=== PATIENT | female | born 1955 ===

== ENCOUNTER 2017-07-02 09:00 | Emergency (ER) | payer OTHER ==
[2017-07-02 09:10] VITALS: TEMP 98
[2017-07-02 09:22] VITALS: RESP 18; BMI 30.5
[2017-07-02] MEDS ORDERED: Sodium Chloride 0.9% 1,000 ML IV STA (09:34)
[2017-07-02] MEDS ORDERED: MethylPREDNISolone Depo 40 mg/ml Inj ONE (10:00)
[2017-07-02] MEDS ORDERED: Iohexol 300 10 ML ONE (10:00)
[2017-07-02] MEDS ORDERED: Bupivacaine HCl 0.25% PF (10 ml) Inj ONE (10:01)
[2017-07-02] MEDS ORDERED: Lidocaine 1% Inj (20ml) ONE (10:01)
--- NOTE | 2017-07-02 10:07 | ED PDOC ---
HPI: Abdomen Time Seen by Provider: 07/02/17 09:12 Chief Complaint (Nursing): Abdominal Pain Chief Complaint (Provider): Abdominal Pain History Per: Patient History/Exam Limitations: no limitations Onset/Duration Of Symptoms: Days (x 1) Current Symptoms Are (Timing): Still Present Associated Symptoms: Nausea, Urinary Symptoms Additional Complaint(s): Kim Miller is a 61 y/o female who presents to the ED complaining of sudden onset right-sided abdominal pain associated with nausea, after urinating this morning. Denies fever, vomiting, diarrhea, and constipation. Yesterday patient had minimal hematuria, 1 episode. Also having urinary frequency for past week. PMD: Mal Kyle Past Medical History Reviewed: Historical Data, Nursing Documentation, Vital Signs Vital Signs: Last Vital Signs Temp 98 F 07/02/17 09:15 Pulse 99 H 07/02/17 09:15 Resp 18 07/02/17 09:15 BP 190/92 H 07/02/17 09:15 Pulse Ox 98 07/02/17 13:01 - Medical History PMH: HTN - Surgical History Surgical History: Cholecystectomy, - Family History Family History: States: Unknown Family Hx - Social History Current smoker - smoking cessation education provided: No Alcohol: None Drugs: Denies - Home Medications Home Medications: Ambulatory Orders Medication Instructions Recorded Naproxen [Naprosyn] 500 mg PO BID PRN #15 tablet 07/02/17 Nitrofurantoin Macrocrystals 100 mg PO BID #14 cap 07/02/17 [Macrobid] Tamsulosin [Flomax] 0.4 mg PO DAILY #14 cap 07/02/17 oxyCODONE/Acetaminophen [Percocet 1 tab PO Q6H PRN #15 tab 07/02/17 5/325 mg Tab] - Allergies Allergies/Adverse Reactions: Allergies Allergy/AdvReac Type Severity Reaction Status Date / Time No Known Allergies Allergy Verified 07/02/17 09:14 Review of Systems ROS Statement: Except As Marked, All Systems Reviewed And Found Negative Constitutional: Negative for: Fever Gastrointestinal: Positive for: Nausea, Abdominal Pain. Negative for: Vomiting , Diarrhea, Constipation Genitourinary Female: Positive for: Frequency (for past week), Hematuria (x 1 episode) Physical Exam - Reviewed Nursing Documentation Reviewed: Yes Vital Signs Reviewed: Yes - Physical Exam Appears: Positive for: Non-toxic, No Acute Distress Head Exam: Positive for: ATRAUMATIC, NORMAL INSPECTION, NORMOCEPHALIC Skin: Positive for: Normal Color, Warm, Dry Eye Exam: Positive for: EOMI, Normal appearance, PERRL Neck: Positive for: Normal, Painless ROM, Supple Cardiovascular/Chest: Positive for: Regular Rate, Rhythm. Negative for: Murmur Respiratory: Positive for: Normal Breath Sounds. Negative for: Accessory Muscle Use, Respiratory Distress Gastrointestinal/Abdominal: Positive for: Soft, Tenderness (Right lateral mid- abdominal tenderness, no Right lower quadrant tenderness) Back: Positive for: Normal Inspection. Negative for: L CVA Tenderness, R CVA Tenderness, Vertebral Tenderness Extremity: Positive for: Normal ROM. Negative for: Pedal Edema, Deformity Neurologic/Psych: Positive for: Alert, Oriented - Laboratory Results Result Diagrams: 07/02/17 10:13 07/02/17 10:13 - ECG O2 Sat by Pulse Oximetry: 98 (RA) Pulse Ox Interpretation: Normal Medical Decision Making Medical Decision Making: Time: 09:34 Initial Impression: UTI, pyelonephritis, nephrolithiasis Initial Plan: --CMP --CBC --PTT --Prothrombin time --Urine culture --Urinalysis --Urine dipstick --NS IV 1000 ml at 1000 mls/hr --Morphine 2 mg IV --Zofran 4 mg IV --Pending CT Abdomen/Pelvis w/o contrast Time: 11:17 CT Abdomen/Pelvis: FINDINGS: There is limited evaluation of the solid organs without the administration of IV contrast. LOWER THORAX: No visible consolidation, pleural effusion, or pneumothorax. Small hiatal hernia/distal esophageal wall thickening. LIVER: Unremarkable. GALLBLADDER AND BILE DUCTS: Cholecystectomy. PANCREAS: Unremarkable. SPLEEN: Unremarkable. ADRENALS: Unremarkable. KIDNEYS AND URETERS: Right-sided hydroureteronephrosis with 3 mm calculus within mid right ureter. At least 2 punctate (less than 2 mm) nonobstructing right renal calculi. No obstructing calculus or hydronephrosis on the left. Left parapelvic cysts. 18 mm left upper pole renal hypodense lesion, appears consistent with a cyst. BLADDER: The urinary bladder appears unremarkable. REPRODUCTIVE: Uterus is present. APPENDIX: The appendix appears within normal limits of caliber. No secondary signs of acute appendicitis. BOWEL: The stomach is nondistended. Lack of oral contrast limits evaluation for bowel pathology. The bowel loops appear within normal limits of caliber without evidence of intestinal obstruction. Scattered diverticulosis without CT evidence of acute diverticulitis. Moderate constipation. PERITONEUM: No significant free fluid. No definite free air. LYMPH NODES: No bulky lymphadenopathy identified. VASCULATURE: No aortic aneurysm. BONES: Osseous demineralization. Degenerative changes. OTHER FINDINGS: Tiny fat containing umbilical hernia. IMPRESSION: Mild right-sided hydroureteronephrosis with 3 mm calculus within mid right ureter. At least 2 punctate (less than 2 mm) nonobstructing right renal calculi. No obstructing calculus or hydronephrosis on the left. Left parapelvic cysts. 18 mm probable left upper pole renal cyst. Scattered diverticulosis without CT evidence of acute diverticulitis. Moderate constipation. Cholecystectomy. Small hiatal hernia/distal esophageal wall thickening. Additional findings as above. Time: 11:35 --Rocephin 1 gm/100 ml NS IV Time: 11:35 Clinical Impression: Ureteral Stones Copy of labs and CT given to patient. Upon provider evaluation patient is medically stable, and requires no further treatment in the ED at this time. Patient will be discharged with Rx for Naprosyn, Percocet, and Flomax. Counseling was provided and all questions were answered regarding diagnosis and need for follow up with PMD. There is agreement to discharge plan. Return if symptoms persist or worsen. Scribe Attestation: Documented by Tawnya Mathias, acting as a scribe for Clau Garcia MD Provider Scribe Attestation: All medical record entries made by the Scribe were at my direction and personally dictated by me. I have reviewed the chart and agree that the record accurately reflects my personal performance of the history, physical exam, medical decision making, and the department course for this patient. I have also personally directed, reviewed, and agree with the discharge instructions and disposition. Disposition - Clinical Impression Clinical Impression: Ureteral calculus, UTI (urinary tract infection) - Patient ED Disposition Is Patient to be Admitted: No Counseled Patient/Family Regarding: Studies Performed, Diagnosis, Need For Followup, Rx Given - Disposition Referrals: Jose Galeas MD [Staff Provider] - Disposition: Routine/Home Disposition Time: 11:35 Condition: IMPROVED Prescriptions: Naproxen [Naprosyn] 500 mg PO BID PRN #15 tablet PRN Reason: Pain, Moderate (4-7) Nitrofurantoin Macrocrystals [Macrobid] 100 mg PO BID #14 cap oxyCODONE/Acetaminophen [Percocet 5/325 mg Tab] 1 tab PO Q6H PRN #15 tab PRN Reason: Pain, Severe (8-10) Tamsulosin [Flomax] 0.4 mg PO DAILY #14 cap Instructions: Renal Colic (ED), Ureteral Stones (ED) Forms: [employer] ([place]ali)
[2017-07-02 10:17] LABS: BASO % 0.5 % (0.0-2.0); EOS # 0.1 K/uL (0.0-0.7); HEMATOCRIT 38.9 % (34.0-47.0); LYMPH # 1.8 K/uL (1.0-4.3); LYMPH % 21.1 % (20.0-40.0); MEAN CELL VOLUME 91.6 fl (81.0-99.0); MEAN CORPUSCULAR HEMOGLOBIN 32.4 pg (27.0-31.0); MEAN CORPUSCULAR HGB CONC 35.4 g/dL (33.0-37.0); MEAN PLATELET VOLUME 7.7 fl (7.2-11.7); MONO # 0.4 K/uL (0.0-0.8); MONO % 4.9 % (0.0-10.0); NEUT # 6.4 K/uL (1.8-7.0); NEUT % 72.5 % (50.0-75.0); NRBC % 0.1 % (0.0-0.0); RED CELL DISTRIBUTION WIDTH 12.5 % (11.5-14.5); WHITE BLOOD COUNT 8.8 K/uL (4.8-10.8)
[2017-07-02 10:18] LABS: RBC URINE 964 /hpf (0-3); URINE BACTERIA RARE (<OCC); URINE BILIRUBIN NEGATIVE (NEGATIVE); URINE BLOOD LARGE (NEGATIVE); URINE COLOR BLUE (YELLOW); URINE GLUCOSE (UA) NEG (Normal); URINE KETONE NEGATIVE (NEGATIVE); URINE LEUKOCYTE ESTERASE TRACE Leu/uL (Negative); URINE PROTEIN NEGATIVE (NEGATIVE); URINE UROBILINOGEN 0.2-1.0 mg/dL (0.2-1.0); WBC URINE 9 /hpf (0-5)
[2017-07-02 10:30] LABS: ALB/GLOB RATIO 1.5 (1.0-2.1); ALKALINE PHOSPHATASE 81 U/L (38-126); ALT/SGPT 45 U/L (9-52); AST/SGOT 29 U/L (14-36); BILIRUBIN,TOTAL 0.8 mg/dl (0.2-1.3); BLOOD UREA NITROGEN 13 mg/dl (7-17); CALCIUM 9.7 mg/dL (8.4-10.2); CARBON DIOXIDE 25 mmol/L (22-30); CHLORIDE 107 mmol/L (98-107); GFR AFRICAN-AMERICAN > 60; GLUCOSE,RANDOM 113 mg/dL (65-105); POTASSIUM 3.9 MMOL/L (3.6-5.0); SODIUM 141 mmol/l (132-148); TOTAL PROTEIN 7.4 G/DL (6.3-8.2)
[2017-07-02 11:08] LABS: PARTIAL THROMBOPLASTIN TIME 33.1 Seconds (25.6-37.1)
--- NOTE | 2017-07-02 11:19 | CT ---
PROCEDURE: CT Abdomen and Pelvis without Oral or IV contrast. HISTORY: R sided abd pain, hematuria COMPARISON: None available. TECHNIQUE: Contiguous axial images of the abdomen and pelvis. No oral or IV contrast administered. Coronal and Sagittal reformats generated and reviewed. Radiation dose: Total exam DLP = 1032.16 mGy-cm. This CT exam was performed using one or more of the following dose reduction techniques: Automated exposure control, adjustment of the mA and/or kV according to patient size, and/or use of iterative reconstruction technique. FINDINGS: There is limited evaluation of the solid organs without the administration of IV contrast. LOWER THORAX: No visible consolidation, pleural effusion, or pneumothorax. Small hiatal hernia/distal esophageal wall thickening. LIVER: Unremarkable. GALLBLADDER AND BILE DUCTS: Cholecystectomy. PANCREAS: Unremarkable. SPLEEN: Unremarkable. ADRENALS: Unremarkable. KIDNEYS AND URETERS: Right-sided hydroureteronephrosis with 3 mm calculus within mid right ureter. At least 2 punctate (less than 2 mm) nonobstructing right renal calculi. No obstructing calculus or hydronephrosis on the left. Left parapelvic cysts. 18 mm left upper pole renal hypodense lesion, appears consistent with a cyst. BLADDER: The urinary bladder appears unremarkable. REPRODUCTIVE: Uterus is present. APPENDIX: The appendix appears within normal limits of caliber. No secondary signs of acute appendicitis. BOWEL: The stomach is nondistended. Lack of oral contrast limits evaluation for bowel pathology. The bowel loops appear within normal limits of caliber without evidence of intestinal obstruction. Scattered diverticulosis without CT evidence of acute diverticulitis. Moderate constipation. PERITONEUM: No significant free fluid. No definite free air. LYMPH NODES: No bulky lymphadenopathy identified. VASCULATURE: No aortic aneurysm. BONES: Osseous demineralization. Degenerative changes. OTHER FINDINGS: Tiny fat containing umbilical hernia. IMPRESSION: Mild right-sided hydroureteronephrosis with 3 mm calculus within mid right ureter. At least 2 punctate (less than 2 mm) nonobstructing right renal calculi. No obstructing calculus or hydronephrosis on the left. Left parapelvic cysts. 18 mm probable left upper pole renal cyst. Scattered diverticulosis without CT evidence of acute diverticulitis. Moderate constipation. Cholecystectomy. Small hiatal hernia/distal esophageal wall thickening. Additional findings as above.
[2017-07-02] MEDS ORDERED: cefTRIAXone (Rocephin) 1 gm Inj ONE (12:02)
[2017-07-02 13:24] VITALS: BP 143/84; PULSE 82; O2SAT 99
== END 2017-07-02 13:27 | disposition home or self-care (01) ==
LOC: H.ER 09:00
DX: N20.2 Calculus of kidney with calculus of ureter (principal); K59.00 Constipation, unspecified; I10 Essential (primary) hypertension; Z90.49 Acquired absence of other specified parts of digestive tract

== ENCOUNTER 2018-12-07 17:11 | Inpatient (IN) | payer OTHER, BC ==
[2018-12-07 17:11] VITALS: BMI 30.5
[2018-12-07 18:44] LABS: VENOUS BLOOD GAS BASE EXCESS 4.8 mmol/L (0.0-2.0); VENOUS BLOOD GAS PCO2 45 mmHg (40-60); VENOUS BLOOD GAS PO2 25 mm/Hg (30-55); VENOUS BLOOD PH 7.43 (7.32-7.43)
[2018-12-07 18:48] LABS: INR 1.1; PROTHROMBIN TIME 12.1 Seconds (9.8-13.1)
[2018-12-07 18:50] LABS: PARTIAL THROMBOPLASTIN TIME 35.3 Seconds (25.6-37.1)
--- NOTE | 2018-12-07 18:57 | ED PDOC ---
Syncope/Near Syncope/Dizziness Time Seen by Provider: 12/07/18 17:56 Chief Complaint (Nursing): Dizziness/Lightheaded Chief Complaint (Provider): Dizziness/Lightheaded History Per: Patient, Family History/Exam Limitations: other (altered mental status) Onset/Duration Of Symptoms: Days Current Symptoms Are (Timing): Still Present Additional Complaint(s): Patient is a 63 y/o female with a PMHx of HTN and hypercholesterolemia who presents to the the ED for evaluation of an altered mental status and dizziness. Patient has been dealing with URI symptoms since 11/28/2018. On 12/02/2018, patient visited doctor and was prescribed Azithromycin. Patient reports her symptoms did get better so she decided to go back to work today. At 16:30 patient was brought home by coworker after feeling confused. Patient claims has been repetitively asking the same questions. Patient feels dizziness, disoriented, and heaviness in head. Patient denies focal weakness, CP, SOB, blurry vision, neck pain, or fever. Of note, due to patients conditions patient's history was also obtained via the . PCP: Dr. Mal Kyle Past Medical History Vital Signs: Last Vital Signs Temp 97.7 F 12/07/18 18:41 Pulse 90 12/07/18 18:41 Resp 19 12/07/18 18:41 BP 134/80 12/07/18 18:41 Pulse Ox 98 12/07/18 18:41 - Medical History PMH: HTN, Hypercholesterolemia - Surgical History Surgical History: Cholecystectomy, - Family History Family History: States: Unknown Family Hx - Social History Alcohol: None Drugs: Denies - Home Medications Home Medications: Ambulatory Orders Medication Instructions Recorded RX: Metoprolol Succinate 25 mg PO DAILY 12/07/18 [[place]sp[place] Sprinkle] Cephalexin [cephalexin] 500 mg PO Q12 #10 cap 12/09/18 Lactobacillus Acidophilus [Bacid 1 cap PO BID #10 cap 12/09/18 Acidophilus] RX: Losartan [Cozaar] 25 mg PO DAILY #30 tab 12/09/18 - Allergies Allergies/Adverse Reactions: Allergies Allergy/AdvReac Type Severity Reaction Status Date / Time No Known Allergies Allergy Verified 07/02/17 09:14 Review of Systems ROS Statement: Except As Marked, All Systems Reviewed And Found Negative (as per HPI) Constitutional: Negative for: Fever, Weakness (focal) Eyes: Negative for: Vision Change (blurriness) Cardiovascular: Negative for: Chest Pain Respiratory: Negative for: Shortness of Breath Musculoskeletal: Negative for: Neck Pain Neurological: Positive for: Confusion, Altered Mental Status, Dizziness Physical Exam - Reviewed Nursing Documentation Reviewed: Yes Vital Signs Reviewed: Yes - Physical Exam Appears: Positive for: Non-toxic, In Acute Distress Head Exam: Positive for: ATRAUMATIC, NORMOCEPHALIC Skin: Positive for: Warm, Dry Eye Exam: Positive for: EOMI, PERRL ENT: Negative for: Pharyngeal Erythema, Tonsillar Exudate Neck: Positive for: Painless ROM, Supple Cardiovascular/Chest: Positive for: Regular Rate, Rhythm, Chest Non Tender. Negative for: Murmur Respiratory: Positive for: Normal Breath Sounds. Negative for: Respiratory Distress Gastrointestinal/Abdominal: Positive for: Soft. Negative for: Tenderness Back: Positive for: Normal Inspection. Negative for: Decreased ROM Extremity: Positive for: Normal ROM. Negative for: Deformity Neurologic/Psych: Positive for: Alert, Oriented (x2), Cerebellar Tests (Normal). Negative for: Motor/Sensory Deficits - Laboratory Results Result Diagrams: 12/08/18 14:20 12/08/18 14:20 Lab Results: pO2 25 mm/Hg (30-55) L 12/07/18 18:41 VBG pH 7.43 (7.32-7.43) 12/07/18 18:41 VBG pCO2 45 mmHg (40-60) 12/07/18 18:41 VBG HCO3 27.3 mmol/L 12/07/18 18:41 VBG Total CO2 31.3 mmol/L (22-28) H 12/07/18 18:41 VBG O2 Sat (Calc) 49.8 % (40-65) 12/07/18 18:41 VBG Base Excess 4.8 mmol/L (0.0-2.0) H 12/07/18 18:41 VBG Potassium 3.9 mmol/L (3.6-5.2) 12/07/18 18:41 Sodium 139.0 mmol/L (132-148) 12/07/18 18:41 Chloride 105.0 mmol/L (98-107) 12/07/18 18:41 Glucose 107 mg/dL (65-105) H 12/07/18 18:41 Lactate 1.3 mmol/L (0.7-2.1) 12/07/18 18:41 FiO2 21.0 % 12/07/18 18:41 PT 12.1 Seconds (9.8-13.1) 12/07/18 18:30 INR 1.1 12/07/18 18:30 APTT 35.3 Seconds (25.6-37.1) 12/07/18 18:30 - ECG O2 Sat by Pulse Oximetry: 98 (RA) Pulse Ox Interpretation: Normal Medical Decision Making Medical Decision Making: Time: 1723 Impression: Dizziness and Disorientation DDx includes but not limited to viral syndrome, dehydration, electrolyte abnormality, flu, UTI, PNA, and metabolic encephalopathy. Plan: VBG Shock Panel CT Head w/o Contrast EKG BNP CMP Magnesium Phosphorus Troponin I CBC PTT Prothrombin Time Chest Portable [Rad] Glucose, POC Blood Culture Urine Culture IV Insertion ([place]) Blood, Glucose, POC Influenza A B UA Time: 1903 CT Head FINDINGS: HEMORRHAGE: No intracranial hemorrhage. BRAIN: No mass effect or edema. Mild scattered white matter hypodensities, which are nonspecific, but often seen with chronic microvascular ischemic disease. Please note that MRI with diffusion imaging is more sensitive in the detection of acute ischemic event. VENTRICLES: No hydrocephalus. CALVARIUM: Unremarkable. PARANASAL SINUSES: Unremarkable as visualized. No significant inflammatory changes. MASTOID AIR CELLS: Unremarkable as visualized. No inflammatory changes. OTHER FINDINGS: None. IMPRESSION: Mild scattered nonspecific white matter changes. SHAY Torres Neuro registered nurse practitioner and Dr [facility] Service for hospitalization SHAY pt and spouse findings and plan of care. Scribe Attestation: Documented by Abraham Chowdary, acting as a scribe for Cathie Jimenez MD. Provider Scribe Attestation: All medical record entries made by the Scribe were at my direction and personally dictated by me. I have reviewed the chart and agree that the record accurately reflects my personal performance of the history, physical exam, medical decision making, and the department course for this patient. I have also personally directed, reviewed, and agree with the discharge instructions and disposition. Disposition - Clinical Impression Clinical Impression: Transient global amnesia, UTI (urinary tract infection) Counseled Patient/Family Regarding: Studies Performed, Diagnosis - Disposition Disposition Time: 23:00 Condition: FAIR - Pt Status Changed To: Hospital Disposition Of: Observation - POA Present On Arrival: None
[2018-12-07 18:58] LABS: BASO # 0.1 K/uL (0.0-0.2); BASO % 0.9 % (0.0-2.0); EOS % 0.1 % (0.0-4.0); HEMOGLOBIN 13.6 g/dL (12.0-16.0); LYMPH # 1.8 K/uL (1.0-4.3); LYMPH % 15.6 % (20.0-40.0); MEAN CELL VOLUME 92.6 fl (81.0-99.0); MEAN CORPUSCULAR HEMOGLOBIN 31.6 pg (27.0-31.0); MEAN CORPUSCULAR HGB CONC 34.2 g/dL (33.0-37.0); MEAN PLATELET VOLUME 7.3 fl (7.2-11.7); MONO # 0.6 K/uL (0.0-0.8); MONO % 5.4 % (0.0-10.0); NEUT # 8.8 K/uL (1.8-7.0); RBC 4.3 Mil/uL (3.80-5.20); RED CELL DISTRIBUTION WIDTH 12.3 % (11.5-14.5); WHITE BLOOD COUNT 11.2 K/uL (4.8-10.8)
[2018-12-07 19:07] LABS: ALB/GLOB RATIO 1.2 (1.0-2.1); ALBUMIN 4.7 g/dL (3.5-5.0); ALT/SGPT 39 U/L (9-52); AST/SGOT 54 U/L (14-36); BLOOD UREA NITROGEN 12 mg/dl (7-17); CALCIUM 9.9 mg/dL (8.4-10.2); GFR NON-AFRICAN AMERICAN > 60
--- NOTE | 2018-12-07 19:07 | CT ---
Date of service: 12/07/2018 PROCEDURE: CT HEAD WITHOUT CONTRAST. HISTORY: ams COMPARISON: None available. TECHNIQUE: Axial computed tomography images were obtained through the head/brain without intravenous contrast. Radiation dose: Total exam DLP = 827.77 mGy-cm. This CT exam was performed using one or more of the following dose reduction techniques: Automated exposure control, adjustment of the mA and/or kV according to patient size, and/or use of iterative reconstruction technique. FINDINGS: HEMORRHAGE: No intracranial hemorrhage. BRAIN: No mass effect or edema. Mild scattered white matter hypodensities, which are nonspecific, but often seen with chronic microvascular ischemic disease. Please note that MRI with diffusion imaging is more sensitive in the detection of acute ischemic event. VENTRICLES: No hydrocephalus. CALVARIUM: Unremarkable. PARANASAL SINUSES: Unremarkable as visualized. No significant inflammatory changes. MASTOID AIR CELLS: Unremarkable as visualized. No inflammatory changes. OTHER FINDINGS: None. IMPRESSION: Mild scattered nonspecific white matter changes.
[2018-12-07] MEDS ORDERED: Sodium Chloride 0.9% 1,000 ML IV STA (19:16)
[2018-12-07 19:18] LABS: B-TYPE NATRIURETIC PEPTIDE 131 pg/ml (0-900)
[2018-12-07 20:23] LABS: SQUAMOUS EPITHIAL 2 /hpf (0-5); URINE BACTERIA RARE (<OCC); URINE BILIRUBIN NEGATIVE (NEGATIVE); URINE BLOOD LARGE (NEGATIVE); URINE CLARITY SLIGHTY-CLOUDY (Clear); URINE COLOR YELLOW (YELLOW); URINE GLUCOSE (UA) NEG (NEGATIVE); URINE LEUKOCYTE ESTERASE TRACE Leu/uL (Negative); URINE PROTEIN 30 mg/dL (NEGATIVE); URINE UROBILINOGEN 0.2-1.0 mg/dL (0.2-1.0)
[2018-12-08] MEDS: Sodium Chloride 0.9% 1,000 ML IV SCH ×2 (06:44→17:15)
[2018-12-08] MEDS ORDERED: Piperacillin/Tazobact 3.375 GM in Sodium Chloride 0.9% 100 ML IVPB SCH (08:00)
[2018-12-08] MEDS ORDERED: Pneumococcal 23-Valent Vaccine IM ONE (09:00)
--- NOTE | 2018-12-08 09:14 | RAD ---
Date of service: 12/07/2018 HISTORY: ams COMPARISON: Chest radiographs 11/07/2017. FINDINGS: LUNGS: Decreased inspiratory volume identified. Nevertheless, no infiltrate or atelectasis identified bilaterally. PLEURA: No significant pleural effusion identified, no pneumothorax apparent. CARDIOVASCULAR: No aortic atherosclerotic calcification present. Normal cardiac size. No pulmonary vascular congestion. OSSEOUS STRUCTURES: No significant abnormalities. VISUALIZED UPPER ABDOMEN: Normal. OTHER FINDINGS: None. IMPRESSION: Diminished inspiratory volume. No acute infiltrate, atelectasis or pulmonary vascular congestion appreciable.
[2018-12-08] MEDS: Metoprolol Succinate 25 mg XL Tab PO SCH (13:04)
[2018-12-08] MEDS: Piperacillin/Tazobact 3.375 GM in Sodium Chloride 0.9% 100 ML IVPB SCH ×2 (13:09→17:11)
[2018-12-08] MEDS: Enoxaparin 40 mg Syringe SC SCH (13:14)
--- NOTE | 2018-12-08 14:27 | MRI ---
Date of service: 12/08/2018 PROCEDURE: MRI BRAIN WITHOUT CONTRAST HISTORY: altered mental status COMPARISON: Noncontrast head CT 12/07/2018. TECHNIQUE: Multiplanar, multisequence MR images of the brain were obtained without intravenous contrast enhancement. FINDINGS: HEMORRHAGE: None DWI: No evidence of an acute or early subacute infarction. BRAIN PARENCHYMA: Good corticomedullary differentiation is seen. Proportional, diffuse expansion of the ventriculosulcal and cisternal spaces is appreciated with white matter signal changes compatible with diffuse cerebral atrophy and chronic microangiopathy. No suspicious extra-axial fluid collection is identified and the midline brain anatomy appears grossly nonfocal as imaged. There is no mass effect throughout. Empty sella noted. VENTRICLES: Unremarkable. No hydrocephalus. CRANIUM: Unremarkable. ORBITS: Grossly unremarkable. PARANASAL SINUSES/MASTOIDS: Minimal mucosal inflammatory changes affect the bilateral posterior ethmoid air cells and the bilateral sphenoid sinuses and there are minimal left mastoid effusions identified. VASCULAR SYSTEM: Skull base flow voids intact. OTHER FINDINGS: None. IMPRESSION: Age-related neuro degenerative findings without definite acute signal abnormalities appreciated at this time. Empty sella noted as well.
--- NOTE | 2018-12-08 14:36 | CP.PCM.CON ---
History of Present Illness - History of Present Illness History of Present Illness: Neurology Consultation Note: Mrs. Miller is a 63-year-old woman with a past medical history of recent URI, for which she received azithromycin and improved. She went to work yesterday and was found to be confused by a co-worker. She was repeating questions and not recalling answers. She did not have any focal weakness, sensory changes, word-finding difficulty or other focal neurological deficits. CT scan of the head was normal. MRI of the brain was done and did not show any significant abnormalities. The patient is now back to baseline. Review of Systems - Constitutional Constitutional: As Per HPI - EENT Eyes: absent: As Per HPI, Blind Spots, Blurred Vision, Change in Vision, Decreased Night Vision, Diplopia, Discharge, Dry Eye, Exophthalmos, Floaters, Irritation, Itchy Eyes, Loss of Peripheral Vision, Pain, Photophobia, Requires Corrective Lenses, Sees Flashes, Spots in Vision, Tunnel Vision, Other Visual D isturbances, Loss of Vision, Other Ears: absent: As Per HPI, Decreased Hearing, Ear Discharge, Ear Pain, Tinnitus, Abnormal Hearing, Disequilibrium, Dizziness, Other Nose/Mouth/Throat: absent: As Per HPI, Epistaxis, Nasal Congestion, Nasal Discharge, Nasal Obstruction, Nasal Trauma, Nose Pain, Post Nasal Drip, Sinus Pain, Sinus Pressure, Bleeding Gums, Change in Voice, Dental Pain, Dry Mouth, Dysphagia, Halitosis, Hoarsness, Lip Swelling, Mouth Lesions, Mouth Pain, Odynophagia, Sore Throat, Throat Swelling, Tongue Swelling, Facial Pain, Neck Pa in, Neck Mass, Other - Breasts Breasts: absent: As Per HPI, Change in Shape, Mass, Pain, Nipple Discharge, Nipple Inversion, Skin Changes, Swelling, Other - Cardiovascular Cardiovascular: absent: As Per HPI, Acrocyanosis, Chest Pain, Chest Pain at Rest, Chest Pain with Activity, Claudication, Diaphoresis, Dyspnea, Dyspnea on Exertion, Edema, Irregular Heart Rhythm, Pain Radiating to Arm/Neck/Jaw, Leg Edema, Leg Ulcers, Lightheadedness, Orthopnea, Palpitations, Paroxysmal Nocturnal Dyspnea, Pedal Edema, Radiating Pain, Rapid Heart Rate, Slow Heart Rate, Syncope, Other - Respiratory Respiratory: absent: As Per HPI, Cough, Dyspnea, Hemoptysis, Dyspnea on Exertion, Wheezing, Snoring, Stridor, Pain on Inspiration, Chest Congestion, Excessive Mucous Production, Change in Mucous Color, Pain with Coughing, Other - Gastrointestinal Gastrointestinal: absent: As Per HPI, Abdominal Pain, Belching, Bloating, Change in Bowel Habits, Change in Stool Character, Coffee Ground Emesis, Constipation, Cramping, Diarrhea, Dyspepsia, Dysphagia, Early Satiety, Excessive Flatus, Fecal Incontinence, Heartburn, Hematemesis, Hematochezia, Loose Stools, Melena, Nausea, Odynophagia, Temesmus, Vomiting, Other - Musculoskeletal Musculoskeletal: absent: As Per HPI, Abnormal Gait, Arthralgias, Atrophy, Back Pain, Deformity, Joint Swelling, Limited Range of Motion, Loss of Height, Muscle Cramps, Muscle Weakness, Myalgias, Neck Pain, Numbness, Radiating Pain into Limb, Stiffness, Tingling, Other - Integumentary Integumentary: absent: As Per HPI, Acne, Alopecia, Bleeding Lesions, Change in Hair, Change in Nails, Change in Pigmentation, Changing Lesions, Dry Skin, Erythema, Furuncle, Hirsutism, Lesions, New Lesions, Non-Healing Lesions, Photosensitivity, Pruritus, Rash, Skin Pain, Skin Ulcer, Sores, Striae, Swelling, Unusual Bruising, Wounds, Jaundice, Other - Neurological Neurological: As Per HPI - Psychiatric Psychiatric: absent: As Per HPI, Abnormal Sleep Pattern, Anhedonia, Anxiety, Auditory Hallucinations, Behavioral Changes, Change in Appetite, Change in Libido, Confusion, Depression, Difficulty Concentrating, Hallucinations, Homicidal Ideation, Hopelessness, Irritability, Memory Loss, Mood Swings, Panic Attacks, Paranoia, Suicidal Ideation, Visual Hallucinations, Tactile Halluci nations, Other - Endocrine Endocrine: absent: As Per HPI, Change in Body Appearance, Change in Libido, Cold Intolorance, Deepening of Voice, Excessive Sweating, Fatigue, Flushing, Heat Intolorance, Increase in Ring/Shoe/Hat Size, Palpitations, Polydipsia, Polyp hagia, Polyuria, Other - Hematologic/Lymphatic Hematologic: absent: As Per HPI, Easy Bleeding, Easy Bruising, Lymphadenopathy, Other Past Patient History - Past Medical History & Family History Past Medical History?: Yes - Past Social History Smoking Status: Never Smoked - CARDIAC Hx Cardiac Disorders: Yes Hx Hypercholesterolemia: Yes Hx Hypertension: Yes - MUSCULOSKELETAL/RHEUMATOLOGICAL Hx Falls: No - PSYCHIATRIC Hx Substance Use: No - SURGICAL HISTORY Hx Section: Yes Hx Cholecystectomy: Yes - ANESTHESIA Hx Anesthesia: Yes Hx Anesthesia Reactions: No Meds Allergies/Adverse Reactions: Allergies Allergy/AdvReac Type Severity Reaction Status Date / Time No Known Allergies Allergy Verified 07/02/17 09:14 - Medications Medications: Current Medications Enoxaparin Sodium (Lovenox) 40 mg SC DAILY [facility]; Protocol Last Admin: 12/08/18 13:14 Dose: 40 mg Sodium Chloride (Sodium Chloride 0.9%) 1,000 mls @ 100 mls/hr IV .Q10H [facility] Stop: 12/09/18 06:20 Last Admin: 12/08/18 06:44 Dose: 100 mls/hr Piperacillin Sod/Tazobactam (Sod 3.375 gm/ Sodium Chloride) 100 mls @ 100 mls/hr IVPB Q8 [facility]; Protocol Last Admin: 12/08/18 13:09 Dose: 100 mls/hr Losartan Potassium (Cozaar) 25 mg PO DAILY [facility] Last Admin: 12/08/18 13:05 Dose: 25 mg Metoprolol Succinate (Toprol Xl) 25 mg PO DAILY [facility] Last Admin: 12/08/18 13:04 Dose: 25 mg Physical Exam - Constitutional Appears: Well - Head Exam Head Exam: ATRAUMATIC, NORMAL INSPECTION, NORMOCEPHALIC - Eye Exam Eye Exam: EOMI, Normal appearance, PERRL Pupil Exam: NORMAL ACCOMODATION, PERRL - ENT Exam ENT Exam: Mucous Membranes Moist, Normal Exam - Neck Exam Neck exam: Positive for: Normal Inspection - Respiratory Exam Respiratory Exam: Clear to Auscultation Bilateral, NORMAL BREATHING PATTERN - Cardiovascular Exam Cardiovascular Exam: REGULAR RHYTHM, +S1, +S2 - GI/Abdominal Exam GI & Abdominal Exam: Normal Bowel Sounds, Soft. absent: Tenderness - Rectal Exam Rectal Exam: Deferred - Back Exam Back exam: NORMAL INSPECTION - Neurological Exam Neurological exam: Alert, CN II-XII Intact, Normal Gait, Oriented x3, Reflexes Normal - Psychiatric Exam Psychiatric exam: Normal Affect, Normal Mood - Skin Skin Exam: Dry, Intact, Normal Color, Warm Results - Vital Signs Recent Vital Signs: Last Vital Signs Temp 97.7 F 12/08/18 07:55 Pulse 69 12/08/18 13:05 Resp 19 12/08/18 07:55 BP 119/72 12/08/18 13:05 Pulse Ox 96 12/08/18 07:55 - Labs Result Diagrams: 12/07/18 18:30 12/07/18 18:30 Labs: Laboratory Results - last 24 hr 12/07/18 12/07/18 12/07/18 18:21 18:30 18:30 WBC 11.2 H RBC 4.30 Hgb 13.6 Hct 39.8 MCV 92.6 MCH 31.6 H MCHC 34.2 RDW 12.3 Plt Count 476 H D MPV 7.3 Neut % (Auto) 78.0 H Lymph % (Auto) 15.6 L Power % (Auto) 5.4 Eos % (Auto) 0.1 Baso % (Auto) 0.9 Neut # (Auto) 8.8 H Lymph # (Auto) 1.8 Power # (Auto) 0.6 Eos # (Auto) 0.0 Baso # (Auto) 0.1 PT INR APTT pO2 VBG pH VBG pCO2 VBG HCO3 VBG Total CO2 VBG O2 Sat (Calc) VBG Base Excess VBG Potassium Glucose Lactate FiO2 Sodium 140 Potassium 3.9 Chloride 104 Carbon Dioxide 25 Anion Gap 15 BUN 12 Creatinine 0.6 L Est GFR ( Amer) > 60 Est GFR (Non-Af Amer) > 60 POC Glucose (mg/dL) 110 Random Glucose 106 H Calcium 9.9 Phosphorus 4.0 Magnesium 1.9 Total Bilirubin 0.5 AST 54 H ALT 39 Alkaline Phosphatase 115 Troponin I < 0.0120 NT-Pro-B Natriuret Pep 131 Total Protein 8.4 H Albumin 4.7 Globulin 3.8 Albumin/Globulin Ratio 1.2 Venous Blood Potassium Urine Color Urine Clarity Urine pH Ur Specific [place] Urine Protein Urine Glucose (UA) Urine Ketones Urine Blood Urine Nitrate Urine Bilirubin Urine Urobilinogen Ur Leukocyte Esterase Urine RBC (Auto) Urine Microscopic WBC Ur Squamous Epith Cells Urine Bacteria Influenza Typ A,B (EIA) 12/07/18 12/07/18 12/07/18 18:30 18:30 18:41 WBC RBC Hgb Hct MCV MCH MCHC RDW Plt Count MPV Neut % (Auto) Lymph % (Auto) Power % (Auto) Eos % (Auto) Baso % (Auto) Neut # (Auto) Lymph # (Auto) Power # (Auto) Eos # (Auto) Baso # (Auto) PT 12.1 INR 1.1 APTT 35.3 pO2 25 L VBG pH 7.43 VBG pCO2 45 VBG HCO3 27.3 VBG Total CO2 31.3 H VBG O2 Sat (Calc) 49.8 VBG Base Excess 4.8 H VBG Potassium 3.9 Glucose 107 H Lactate 1.3 FiO2 21.0 Sodium 139.0 Potassium Chloride 105.0 Carbon Dioxide Anion Gap BUN Creatinine Est GFR ( Amer) Est GFR (Non-Af Amer) POC Glucose (mg/dL) Random Glucose Calcium Phosphorus Magnesium Total Bilirubin AST ALT Alkaline Phosphatase Troponin I NT-Pro-B Natriuret Pep Total Protein Albumin Globulin Albumin/Globulin Ratio Venous Blood Potassium 3.9 Urine Color Urine Clarity Urine pH Ur Specific [place] Urine Protein Urine Glucose (UA) Urine Ketones Urine Blood Urine Nitrate Urine Bilirubin Urine Urobilinogen Ur Leukocyte Esterase Urine RBC (Auto) Urine Microscopic WBC Ur Squamous Epith Cells Urine Bacteria Influenza Typ A,B (EIA) Negative for flu a/b 12/07/18 20:09 WBC RBC Hgb Hct MCV MCH MCHC RDW Plt Count MPV Neut % (Auto) Lymph % (Auto) Power % (Auto) Eos % (Auto) Baso % (Auto) Neut # (Auto) Lymph # (Auto) Power # (Auto) Eos # (Auto) Baso # (Auto) PT INR APTT pO2 VBG pH VBG pCO2 VBG HCO3 VBG Total CO2 VBG O2 Sat (Calc) VBG Base Excess VBG Potassium Glucose Lactate FiO2 Sodium Potassium Chloride Carbon Dioxide Anion Gap BUN Creatinine Est GFR ( Amer) Est GFR (Non-Af Amer) POC Glucose (mg/dL) Random Glucose Calcium Phosphorus Magnesium Total Bilirubin AST ALT Alkaline Phosphatase Troponin I NT-Pro-B Natriuret Pep Total Protein Albumin Globulin Albumin/Globulin Ratio Venous Blood Potassium Urine Color Yellow Urine Clarity Slighty-cloudy Urine pH 6.0 Ur Specific [place] 1.013 Urine Protein 30 Urine Glucose (UA) Neg Urine Ketones Negative Urine Blood Large Urine Nitrate Negative Urine Bilirubin Negative Urine Urobilinogen 0.2-1.0 Ur Leukocyte Esterase Trace Urine RBC (Auto) 39 H Urine Microscopic WBC 7 H Ur Squamous Epith Cells 2 Urine Bacteria Rare Influenza Typ A,B (EIA) Assessment & Plan (1) Transient global amnesia Assessment and Plan: Likely due to exertion, physical stress, infection and UTI. The patient's MRI is normal. Continue treating underlying cause. Thank you. Status: Acute
[2018-12-08 14:39] LABS: HEMOGLOBIN 12.7 g/dL (12.0-16.0); MEAN CELL VOLUME 94.8 fl (81.0-99.0); MEAN CORPUSCULAR HEMOGLOBIN 32.5 pg (27.0-31.0); MEAN CORPUSCULAR HGB CONC 34.3 g/dL (33.0-37.0); RBC 3.91 Mil/uL (3.80-5.20); RED CELL DISTRIBUTION WIDTH 12.4 % (11.5-14.5); WHITE BLOOD COUNT 8.8 K/uL (4.8-10.8)
[2018-12-08 14:54] LABS: BLOOD UREA NITROGEN 13 mg/dl (7-17); CALCIUM 9.6 mg/dL (8.4-10.2); GFR NON-AFRICAN AMERICAN > 60
--- NOTE | 2018-12-08 20:22 | CARD ---
APPROVED REPORT Date of service: 12/07/2018 EKG Measurement Heart [id number] <Conclusion> Normal sinus rhythm Voltage criteria for left ventricular hypertrophy Abnormal ECG
--- NOTE | 2018-12-08 20:53 | CARD ---
APPROVED REPORT Date of service: 12/08/2018 EXAM: Two-dimensional and M-mode echocardiogram with Doppler and color Doppler. Other Information Quality : GoodRhythm : NSR INDICATION AMS 2D DIMENSIONS IVSd0.97 (0.7-1.1cm)LVDd4.42 (3.9-5.9cm) LVOT Diameter1.99 (1.8-2.4cm)PWd1.17 (0.7-1.1cm) IVSs1.23 (0.8-1.2cm)LVDs2.70 (2.5-4.0cm) FS (%) 39.0 %PWs1.25 (0.8-1.2cm) M-Mode DIMENSIONS Left Atrium (MM)3.59 (2.5-4.0cm)IVSd0.91 (0.7-1.1cm) Aortic Root3.24 (2.2-3.7cm)LVDd6.15 (4.0-5.6cm) Aortic Cusp Exc.2.09 (1.5-2.0cm)PWd1.00 (0.7-1.1cm) IVSs1.35 cmFS (%) 32 % LVDs4.21 (2.0-3.8cm)PWs1.18 cm Aortic Valve AoV Peak Ywvwuugt68.3cm/sAoV VTI19.5cmAO Peak GR.4mmHg LVOT Peak Gnfsuygs07.9cm/sLVOT VTI18.16cmAO Mean GR.2mmHg DINESH (VMAX)1.47ts8CLR (VTI)1.54cm2 Mitral Valve MV E Qkkovblu06.9cm/sMV DECEL [id number] A Yeztlfnk94.5cm/s MV XGV71mxW/A ratio0.7MVA (PHT)3.39cm2 TDI Lateral E' Peak V10.92cm/sMedial E' Peak V8.15cm/sE/Lateral E'5.2 E/Medial E'7.0 Tricuspid Valve TR Peak [id number]/sRAP [id number] Peak Gr.21mmHg [id number] LEFT VENTRICLE The left ventricle is normal size. There is normal left ventricular wall thickness. The left ventricular systolic function is normal. The estimated ejection fraction is 55-60% No regional wall motion abnormalities noted.. Transmitral Doppler flow pattern is Grade I-abnormal relaxation pattern. No left ventricle thrombus noted on this study. There is no ventricular septal defect visualized. There is no left ventricular aneurysm. There is no mass noted in the left ventricle. RIGHT VENTRICLE The right ventricle is normal size. There is normal right ventricular wall thickness. The right ventricular systolic function is normal. ATRIA The left atrium size is normal. The right atrium size is normal. The interatrial septum is intact with no evidence for an atrial septal defect. AORTIC VALVE The aortic valve is normal in structure. No aortic regurgitation is present. There is no aortic valvular stenosis. There is no aortic valvular vegetation. MITRAL VALVE The mitral valve is normal in structure. There is no evidence of mitral valve prolapse. There is no mitral valve stenosis. There is trace mitral valve regurgitation noted. TRICUSPID VALVE The tricuspid valve is normal in structure. There is trace tricuspid valve regurgitation noted. RVSP is calculated at 25 mm Hg. There is no tricuspid valve prolapse or vegetation. There is no tricuspid valve stenosis. PULMONIC VALVE The pulmonary valve is normal in structure. There is no pulmonic valvular regurgitation. There is no pulmonic valvular stenosis. GREAT VESSELS The aortic root is normal in size. The ascending aorta is normal in size. The pulmonary artery is normal. The IVC is normal in size and collapses >50% with inspiration. PERICARDIAL EFFUSION There is no pericardial effusion. There is no pleural effusion. <Conclusion> The estimated ejection fraction is 55-60% Transmitral Doppler flow pattern is Grade I-abnormal relaxation pattern. The left atrium size is normal. There is trace mitral valve regurgitation noted. There is trace tricuspid valve regurgitation noted. RVSP is calculated at 25 mm Hg.
[2018-12-08] MEDS ORDERED: DiphenhydrAMINE 12.5 mg/5 ml LIQ UD (5 ml) PO PRN (23:40)
[2018-12-09] MEDS: Piperacillin/Tazobact 3.375 GM in Sodium Chloride 0.9% 100 ML IVPB SCH ×2 (01:01→08:50)
[2018-12-09] MEDS: Sodium Chloride 0.9% 1,000 ML IV SCH (02:41)
[2018-12-09 06:14] VITALS: RESP 20
[2018-12-09] MEDS: Enoxaparin 40 mg Syringe SC SCH (08:51)
[2018-12-09] MEDS: Metoprolol Succinate 25 mg XL Tab PO SCH (09:00)
[2018-12-09 11:54] VITALS: BP 138/78; PULSE 74; TEMP 98.5
--- NOTE | 2018-12-09 15:42 | US ---
Date of service: 12/08/2018 PROCEDURE: Duplex ultrasound of the carotid and vertebral arteries. HISTORY: AMS COMPARISON: None available. TECHNIQUE: Grayscale and duplex Doppler evaluation of the cervical carotid and vertebral arteries were performed. The common carotid, carotid bifurcations and cervical ICA and proximal ECA were evaluated. The vertebral arteries were evaluated for gross patency and direction. FINDINGS: RIGHT CAROTID ARTERIES: Common Carotid Artery: Maximal flow velocity of 97.9 cm/s. Carotid Bifurcation: Normal. Internal Carotid Artery:Heterogeneous plaque formation. Maximal flow velocity of 106.4 cm/s. External Carotid Artery (proximal branches): Maximal flow velocity of 104.8 cm/s. ICA/CCA Ratio: 1.2 LEFT CAROTID ARTERIES: Common Carotid Artery: Maximal flow velocity of 102.7 cm/s. Carotid Bifurcation: Intimal thickening is present Internal Carotid Artery:Heterogeneous plaque formation. Maximal flow velocity of 96.8 cm/s. External Carotid Artery (proximal branches): Maximal flow velocity of 104.3 cm/s. ICA/CCA Ratio: 1.2 VERTEBRAL ARTERIES: Right Vertebral Artery: Patent. Antegrade flow. Left Vertebral Artery: Patent. Antegrade flow. OTHER FINDINGS: Atherosclerotic calcification present. IMPRESSION: Right ICA degree of stenosis: Less than 50% Left ICA degree of stenosis: Less than 50% Reference Internal Carotid Artery (ICA) Peak Systolic Velocity (PSV) for above: 1. Less than 50% stenosis less than 125 cm/s peak systolic velocity 2. 50-69% stenosis 125-230cm/s peak systolic velocity 3. Greater than 70% but less than near occlusion greater than 230 cm/s peak systolic velocity
--- NOTE | 2018-12-10 01:42 | CP.PCM.HP ---
History of Present Illness - History of Present Illness History of Present Illness: CC: AMS and Dizziness History of Present Illness: A 63 y/o female with a PMHx of HTN and Hypercholesterolemia who presents to the the ED for evaluation of an Altered Mental Status and Dizziness. Patient has been dealing with URI symptoms since 11/28/2018. On 12/02/2018, patient visited doctor and was prescribed Azithromycin. Patient reports her symptoms did get better so she decided to go back to work today. 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 Patient's claimed that she has been repetitively asking the same questions. Patient feels dizziness, disoriented, and heaviness in head. Patient feels that she is not remembering recent events. Also patient stated that the court was stressful environment. Denies any fall, loss of consciousness or trauma. Denies chest pain, palpitations or diaphoresis Patient denies focal weakness, CP, SOB, blurry vision, neck pain, or fever. CT head without contrast showed no acute finding. Patient was kept for observation with possible diagnosis of TIA or transient global amnesia. Present on Admission - Present on Admission Any Indicators Present on Admission: No Review of Systems - Review of Systems Review of Systems: as per HPI Past Patient History - Past Medical History & Family History Past Medical History?: Yes Past Family History: Reviewed and not pertinent - Past Social History Smoking Status: Never Smoked Alcohol: None Drugs: Denies - CARDIAC Hx Cardiac Disorders: Yes Hx Hypercholesterolemia: Yes Hx Hypertension: Yes - MUSCULOSKELETAL/RHEUMATOLOGICAL Hx Falls: No - PSYCHIATRIC Hx Substance Use: No - SURGICAL HISTORY Hx Section: Yes Hx Cholecystectomy: Yes - ANESTHESIA Hx Anesthesia: Yes Hx Anesthesia Reactions: No Meds Home Medications: Home Medication List Medication Instructions Recorded Confirmed Type Cephalexin [cephalexin] 500 mg PO Q12 #10 cap 12/09/18 Rx Lactobacillus Acidophilus [Bacid 1 cap PO BID #10 cap 12/09/18 Rx Acidophilus] Losartan [Cozaar] 25 mg PO DAILY #30 tab 12/09/18 Rx Allergies/Adverse Reactions: Allergies Allergy/AdvReac Type Severity Reaction Status Date / Time No Known Allergies Allergy Verified 07/02/17 09:14 Physical Exam - Constitutional Appears: Well, No Acute Distress - Head Exam Head Exam: ATRAUMATIC, NORMAL INSPECTION, NORMOCEPHALIC - Eye Exam Eye Exam: EOMI, Normal appearance, PERRL Pupil Exam: NORMAL ACCOMODATION, PERRL - ENT Exam ENT Exam: Mucous Membranes Moist, Normal Exam - Neck Exam Neck exam: Positive for: Normal Inspection - Respiratory Exam Respiratory Exam: Clear to Auscultation Bilateral, NORMAL BREATHING PATTERN - Cardiovascular Exam Cardiovascular Exam: REGULAR RHYTHM, +S2, +S4 - GI/Abdominal Exam GI & Abdominal Exam: Normal Bowel Sounds, Soft. absent: Tenderness - Extremities Exam Extremities exam: Positive for: normal capillary refill, normal inspection - Back Exam Back exam: FULL ROM, NORMAL INSPECTION - Neurological Exam Neurological exam: Alert, CN II-XII Intact, Normal Gait, Oriented x3, Reflexes Normal - Psychiatric Exam Psychiatric exam: Normal Affect, Normal Mood - Skin Skin Exam: Dry, Intact, Normal Color, Warm Results - Vital Signs Recent Vital Signs: Last Vital Signs Temp 98.5 F 12/09/18 11:54 Pulse 74 12/09/18 11:54 Resp 20 12/09/18 11:54 BP 138/78 12/09/18 11:54 Pulse Ox 96 12/09/18 11:54 - Labs Result Diagrams: 12/08/18 14:20 12/08/18 14:20 Labs: Laboratory Results - last 24 hr 12/09/18 10:51 POC Glucose (mg/dL) 117 H - EKG Data EKG comments: Normal sinus rhythm at 92/min. Voltage criteria for LVH - Imaging and Cardiology CT scan - head Status: Report reviewed by me Additional comment: Impression: Mild scattered nonspecific white matter changes Chest x-ray Status: Report reviewed by me Additional comment: No acute finding Assessment & Plan (1) TIA (transient ischemic attack) Status: Acute (2) Transient global amnesia Status: Acute (3) UTI (urinary tract infection) Status: Acute Priority: High - Assessment and Plan (Free Text) Plan: Transfer to Telemetry Aspirin Zosyn 3.375 g IV every 6 hours Neuro check every 4 hours MRI brain without contrast pending Bilateral carotid Doppler Transthoracic echo HgA1c Fasting lipid profile Neurology evaluation pending
--- NOTE | 2018-12-10 01:44 | CP.PCM.DIS ---
Provider - Provider Date of Admission: 12/07/18 20:24 Attending physician: Heidi Maria MD Consults: 12/07/18 20:25 Neurology Consult Stat Comment: Consulting Provider: Mendoza Torres Consulting Physician: Mendoza Torres Reason for Consult: transient global amnesia Time Spent in preparation of Discharge (in minutes): 25 Diagnosis - Discharge Diagnosis (1) TIA (transient ischemic attack) Status: Resolved (2) Transient global amnesia Status: Resolved (3) UTI (urinary tract infection) Status: Acute Priority: High Hospital Course - Lab Results Lab Results: Micro Results 12/07/18 18:30 Blood Blood Culture - Preliminary NO GROWTH AFTER 48 HOURS 12/07/18 20:09 Urine,Clean Catch Urine Culture - Final No Growth (<1,000 CFU/ML) Most Recent Lab Values WBC 8.8 K/uL (4.8-10.8) 12/08/18 14:20 RBC 3.91 Mil/uL (3.80-5.20) 12/08/18 14:20 Hgb 12.7 g/dL (12.0-16.0) 12/08/18 14:20 Hct 37.0 % (34.0-47.0) 12/08/18 14:20 MCV 94.8 fl (81.0-99.0) D 12/08/18 14:20 MCH 32.5 pg (27.0-31.0) H 12/08/18 14:20 MCHC 34.3 g/dL (33.0-37.0) 12/08/18 14:20 RDW 12.4 % (11.5-14.5) 12/08/18 14:20 Plt Count 444 K/uL (130-400) H 12/08/18 14:20 MPV 7.3 fl (7.2-11.7) 12/07/18 18:30 Neut % (Auto) 78.0 % (50.0-75.0) H 12/07/18 18:30 Lymph % (Auto) 15.6 % (20.0-40.0) L 12/07/18 18:30 [place] % (Auto) 5.4 % (0.0-10.0) 12/07/18 18:30 Eos % (Auto) 0.1 % (0.0-4.0) 12/07/18 18:30 Baso % (Auto) 0.9 % (0.0-2.0) 12/07/18 18:30 Neut # (Auto) 8.8 K/uL (1.8-7.0) H 12/07/18 18:30 Lymph # (Auto) 1.8 K/uL (1.0-4.3) 12/07/18 18:30 [place] # (Auto) 0.6 K/uL (0.0-0.8) 12/07/18 18:30 Eos # (Auto) 0.0 K/uL (0.0-0.7) 12/07/18 18:30 Baso # (Auto) 0.1 K/uL (0.0-0.2) 12/07/18 18:30 PT 12.1 Seconds (9.8-13.1) 12/07/18 18:30 INR 1.1 12/07/18 18:30 APTT 35.3 Seconds (25.6-37.1) 12/07/18 18:30 pO2 25 mm/Hg (30-55) L 12/07/18 18:41 VBG pH 7.43 (7.32-7.43) 12/07/18 18:41 VBG pCO2 45 mmHg (40-60) 12/07/18 18:41 VBG HCO3 27.3 mmol/L 12/07/18 18:41 VBG Total CO2 31.3 mmol/L (22-28) H 12/07/18 18:41 VBG O2 Sat (Calc) 49.8 % (40-65) 12/07/18 18:41 VBG Base Excess 4.8 mmol/L (0.0-2.0) H 12/07/18 18:41 VBG Potassium 3.9 mmol/L (3.6-5.2) 12/07/18 18:41 Sodium 139.0 mmol/L (132-148) 12/07/18 18:41 Chloride 105.0 mmol/L (98-107) 12/07/18 18:41 Glucose 107 mg/dL (65-105) H 12/07/18 18:41 Lactate 1.3 mmol/L (0.7-2.1) 12/07/18 18:41 FiO2 21.0 % 12/07/18 18:41 Sodium 142 mmol/l (132-148) 12/08/18 14:20 Potassium 3.8 MMOL/L (3.6-5.0) 12/08/18 14:20 Chloride 105 mmol/L (98-107) 12/08/18 14:20 Carbon Dioxide 29 mmol/L (22-30) 12/08/18 14:20 Anion Gap 12 (10-20) 12/08/18 14:20 BUN 13 mg/dl (7-17) 12/08/18 14:20 Creatinine 0.7 mg/dl (0.7-1.2) 12/08/18 14:20 Est GFR ( Amer) > 60 12/08/18 14:20 Est GFR (Non-Af Amer) > 60 12/08/18 14:20 POC Glucose (mg/dL) 117 mg/dL (65-110) H 12/09/18 10:51 Random Glucose 116 mg/dL (65-105) H 12/08/18 14:20 Calcium 9.6 mg/dL (8.4-10.2) 12/08/18 14:20 Phosphorus 4.0 mg/dl (2.5-4.5) 12/07/18 18:30 Magnesium 1.9 MG/DL (1.6-2.3) 12/07/18 18:30 Total Bilirubin 0.5 mg/dl (0.2-1.3) 12/07/18 18:30 AST 54 U/L (14-36) H 12/07/18 18:30 ALT 39 U/L (9-52) 12/07/18 18:30 Alkaline Phosphatase 115 U/L (38-126) 12/07/18 18:30 Troponin I < 0.0120 ng/mL (0.00-0.120) 12/07/18 18:30 NT-Pro-B Natriuret Pep 131 pg/ml (0-900) 12/07/18 18:30 Total Protein 8.4 G/DL (6.3-8.2) H 12/07/18 18:30 Albumin 4.7 g/dL (3.5-5.0) 12/07/18 18:30 Globulin 3.8 gm/dL (2.2-3.9) 12/07/18 18:30 Albumin/Globulin Ratio 1.2 (1.0-2.1) 12/07/18 18:30 Venous Blood Potassium 3.9 mmol/L (3.6-5.2) 12/07/18 18:41 Urine Color Yellow (YELLOW) 12/07/18 20:09 Urine Clarity Slighty-cloudy (Clear) 12/07/18 20:09 Urine pH 6.0 (5.0-8.0) 12/07/18 20:09 Ur Specific [place] 1.013 (1.003-1.030) 12/07/18 20:09 Urine Protein 30 mg/dL (NEGATIVE) 12/07/18 20:09 Urine Glucose (UA) Neg mg/dL (NEGATIVE) 12/07/18 20:09 Urine Ketones Negative mg/dL (NEGATIVE) 12/07/18 20:09 Urine Blood Large (NEGATIVE) 12/07/18 20:09 Urine Nitrate Negative (NEGATIVE) 12/07/18 20:09 Urine Bilirubin Negative (NEGATIVE) 12/07/18 20:09 Urine Urobilinogen 0.2-1.0 mg/dL (0.2-1.0) 12/07/18 20:09 Ur Leukocyte Esterase Trace Deysi/uL (Negative) 12/07/18 20:09 Urine RBC (Auto) 39 /hpf (0-3) H 12/07/18 20:09 Urine Microscopic WBC 7 /hpf (0-5) H 12/07/18 20:09 Ur Squamous Epith Cells 2 /hpf (0-5) 12/07/18 20:09 Urine Bacteria Rare (<OCC) 12/07/18 20:09 Influenza Typ A,B (EIA) Negative for flu a/b (NEGATIVE) 12/07/18 18:30 Discharge Exam - Head Exam Head Exam: ATRAUMATIC, NORMAL INSPECTION, NORMOCEPHALIC Discharge Plan - Discharge Medications Prescriptions: Lactobacillus Acidophilus [Bacid Acidophilus] 1 cap PO BID #10 cap Losartan [Cozaar] 25 mg PO DAILY #30 tab Cephalexin [cephalexin] 500 mg PO Q12 #10 cap - Follow Up Plan Condition: FAIR Disposition: HOME/ ROUTINE Instructions: Altered Mental Status (DC), Dizziness, Nonvertigo, (DC) Additional Instructions: follow up with primary MD 1 week Referrals: Mal Kyle MD [Medical Doctor] - Mendoza Torres MD [Medical Doctor] - Heidi Maria MD [Staff Provider] -
[2018-12-10 23:26] VITALS: O2SAT 98
== END 2018-12-09 14:12 | disposition home or self-care (01) | DRG 71 ==
LOC: H.ER 17:11 → H.ERHOLD 20:24 → H.MEDSURG1 12-08 00:20 → H.TEL 12-08 18:30
PROVIDERS: ADMIT Internal Medicine; ATTEND Internal Medicine
DX: G45.4 Transient global amnesia (principal); G45.9 Transient cerebral ischemic attack, unspecified; N39.0 Urinary tract infection, site not specified; E78.00 Pure hypercholesterolemia, unspecified; I10 Essential (primary) hypertension